=== PATIENT | female | born 1965 | race Two or more races ===

== ENCOUNTER 2020-04-08 15:22 | Outpatient (CLI) | payer OTHER | END 2020-04-08 16:44 | disposition home or self-care (01) | LOC: MRI 15:22 → RAD 15:22 | PROVIDERS: ATTEND Orthopaedic Surgery | DX: M25.762 Osteophyte, left knee (principal); M25.761 Osteophyte, right knee; M25.562 Pain in left knee; M25.561 Pain in right knee | CPT/HCPCS: 73721 ==